=== PATIENT | female | born 1995 | race Caucasian/White ===

== ENCOUNTER 2017-02-04 11:10 | Emergency (ER) | payer OTHER, SELFPAY ==
--- NOTE | ~2017-02-04 | ER ---
PATIENT'S NAME: W[facility] Shanthi [facility] AGE: 21 Y [address] ROOM: [place] [address] LOCATION: [facility] ADMIT DATE: 02/04/2017 ER/Outpatient Report DISCHARGE DATE: 02/04/2017 FAMILY PHYSICIAN: PHYSICIAN, NO ATTENDING PHYSICIAN: Thais Flores ARRIVAL TIME: 11:14. ENCOUNTER TIME: 11:20. SUBJECTIVE/CHIEF COMPLAINT: Fast heart rate. HISTORY OF PRESENT ILLNESS: The patient is a pleasant and well-appearing 21-year-old female, complaining of palpitations that she describes as "my heart pinching randomly" for the last two to three months. She presented to the Emergency Department as these occurrences have become more common in the last two to three days. She described it as a pinching of her heart that is momentary in duration and feels deep. She has some short-lived shortness of breath and shaky episodes when these happen. She describes her general activity level is sedentary, and there was no correlation with exercise. PAST SURGICAL HISTORY: Includes a bilateral eye surgery that was performed about 14 years ago. She denies any other past medical history. FAMILY PERTINENT HISTORY: Today includes hypertension in her father and atrial fibrillation in her sister. SOCIAL HISTORY: She is a non-smoker and non-alcohol consumer. They do not have a family physician at this time, though she saw Dr. Morel for her pediatric needs. PERTINENT REVIEW OF SYSTEMS: All systems were reviewed by me and are negative unless otherwise stated in the HPI above. OBJECTIVE: VITAL SIGNS: Height is 5 feet 7 inches and weight is 82 kg. Blood pressure was 156/79, pulse was 86, respirations were 20 breaths per minute, temperature PATIENT'S NAME: WALT [facility] AGE: 21 Y [address] ROOM: [place] [address] LOCATION: [facility] ADMIT DATE: 02/04/2017 ER/Outpatient Report DISCHARGE DATE: 02/04/2017 FAMILY PHYSICIAN: PHYSICIAN, NO ATTENDING PHYSICIAN: Thais Flores was 98.1 degrees Fahrenheit found tympanically, and SpO2 was at 100% on room air. No pain at this time. GENERAL: The patient is well developed and well nourished, and in no acute distress. Calm. Alert and oriented to person, place, and time. HEENT: Head: Atraumatic and normocephalic. Eyes: Conjunctivae were clear bilaterally. No discharge. Pupils are PERRLA bilaterally. EOMFI bilaterally. No nystagmus. Ears: With tympanic membranes showing good light reflex bilaterally. Auditory canals were patent bilaterally. Nose: With pink turbinates and not swollen. No drainage. Throat: With midline uvula. No exudates, erythema, or tonsillar hypertrophy. NECK: Supple and without lymphadenopathy. Trachea is midline. No JVD. LUNGS: Clear to auscultation bilaterally. No wheezes, crackles, rhonchi, or stridor. Normal respiratory effort and no accessory muscle use. HEART: Regular rate and rhythm. No S3, S4, or extra sounds. ABDOMEN: With positive bowel sounds x4. Normal percussion. Soft, nontender, and nondistended. No masses. Zhen's was negative bilaterally. LABORATORY DATA: CBC: WBC of 7.8, RBC of 4.56, hemoglobin of 12.9, hematocrit of 38.7, MCV of 84.9, MCH of 28.3, MCHC of 33.3, RDW of 12.3, platelets of 262, and MPV of 10.1; auto diff with NRBC of 0, neutrophil number of 5.1, neutrophil percent of 65, lymph number of 1.9, lymph percent of 24.3, mono number of 0.6, mono percent of 7.8, eosinophil number of 0.1, eosinophil percent of 1.8, basophil number of 0.1, basophil percent of 1.0, Ig number of 0.0, and Ig percent of 0.1. CMS with sodium at 142, potassium was 3.9, chloride was 108, CO2 was 24, anion gap was 13.9, glucose was 87, calcium was 8.9, BUN was 11, creatinine was 0.8, total protein was 7.4, albumin was 3.8, globulin was 3.6, A/G ratio was 1.1, total bilirubin was 0.5, alkaline phosphatase was 65, AST was 19, ALT was 28, estimated GFR was over 60, amylase was 36, lipase was 79, CPK was 111, CK-MB was less than 0.5, troponin I was less than 0.40, free T4 was at 0.8, TSH was 2.26, and T4 was 8. Discussed the above results with the patient and her mother present in the room. EKG shows a normal sinus rhythm, with no comparison study available. All P- waves were upright without any acute changes. I discussed results with the patient and her mother in the room. ASSESSMENT: Palpitations. PLAN: The patient was without an event during her stay in the Emergency Department. She remained in a normal sinus rhythm, on telemetry throughout her stay. There do not appear to be any acute events at this time, and no interventions are indicated at this time. I strongly advised the patient to follow up with PATIENT'S NAME: HUGH GODOY [facility] AGE: 21 Y [address] ROOM: [place], [place] [address] LOCATION: [facility] ADMIT DATE: 02/04/2017 ER/Outpatient Report DISCHARGE DATE: 02/04/2017 FAMILY PHYSICIAN: PHYSICIAN, NO ATTENDING PHYSICIAN: Thais Flores her regular physician within the week, or establish a primary care provider for further workup. Supportive management moving forward at this time. Push fluids, and keep stress level as low as manageable. The patient and her mother verbalized understanding. They would like to drive back to [place] today, and since she is asymptomatic, I think that is fine at this time, but if she develops any issues, she was instructed to stop immediately, and be seen by a Medical professional. They verbalized understanding. I discussed the risk of having an event on the road. Give plenty of rest and liquids. Take Tylenol or ibuprofen as directed for fever or discomfort unless allergic, asthmatic, or aspirin sensitive. Return to the Emergency Department or primary care provider if symptoms persist or worsen. It was again stressed that she establish with a primary care provider within the next week, and she verbalized understanding. TASHA VARGAS PA-C FOR MD OWEN QUINTERO/leahl /[id number] d: 02/04/172054: 02/10/17 1216, OUTPATIENT REPORT
[2017-02-04 12:12] LABS: BASOPHIL # 0.1 K/uL (0.0-0.2); EOSINOPHIL # 0.1 K/uL (0.0-0.5); EOSINOPHIL % 1.8 %; HEMATOCRIT 38.7 % (33.0-46.0); HEMOGLOBIN 12.9 g/dL (11.0-15.0); IMMATURE GRANULOCYTE % 0.1 %; LYMPHOCYTE # 1.9 K/uL (0.8-4.0); LYMPHOCYTE % 24.3 %; MCH 28.3 pg (27.0-34.0); MCHC 33.3 gm/dL (32.0-36.5); MCV 84.9 fl (83.0-98.0); MONOCYTE # 0.6 K/uL (0.0-1.0); MONOCYTE % 7.8 %; MPV 10.1 fl (9.4-12.4); NEUTROPHIL # (ANC) 5.1 K/uL (1.8-7.8); NRBC % 0 /100WBC (0-0.00); PLATELET COUNT 262 K/uL (150-450); RBC 4.56 M/uL (3.50-5.00); RDW-CV 12.3 % (11.9-14.6); WBC 7.8 K/uL (4.0-11.0)
[2017-02-04 12:33] LABS: ALBUMIN 3.8 gm/dL (3.5-5.0); ALK PHOS 65 IU/L (33-138); ALT 28 IU/L (12-78); ANION GAP 13.9 (10.0-19.0); AST 19 IU/L (10-40); BLOOD UREA NITROGEN 11 mg/dL (6-24); CALCIUM 8.9 mg/dL (8.5-10.5); CHLORIDE 108 mMol/L (96-110); CO2 24 mMol/L (22-32); CPK 111 IU/L (21-215); CREATININE 0.8 mg/dL (0.5-1.1); ESTIMATED GFR (MDRD EQUATION) > 60; POTASSIUM 3.9 mMol/L (3.7-5.1); SODIUM 142 mMol/L (135-145); TOTAL BILIRUBIN 0.5 mg/dL (0.0-1.5); TOTAL PROTEIN 7.4 g/dL (6.0-8.4)
== END 2017-02-04 13:10 | disposition disaster alternative care site (69) ==
LOC: GMED 11:10
PROVIDERS: Physician Assistant
DX: R00.2 Palpitations (principal)